=== PATIENT | female | born 1940 | race Caucasian/White ===

== ENCOUNTER 2017-05-21 11:19 | Day surgery (SDC) | payer MEDICARE, OTHER ==
[2017-05-18 15:12] VITALS: BMI 23.6
[~2017-05-21 11:19] MED LIST: LACTATED RINGERS 1,000 ML IV SCH
[2017-05-21 12:43] VITALS: TEMP 96.8
[2017-05-21] MEDS ORDERED: PROPOFOL 10 MG/ML 20 ML VIAL IV ONE (13:12)
--- NOTE | 2017-05-21 13:29 | P.PCN ---
Date of Procedure: 05/21/17 Preoperative Diagnosis: Postoperative Diagnosis: Procedure(s) Performed: BRIEF HISTORY: Patient is a 76-year-old, pleasant, white female, scheduled for an upper endoscopy as part of evaluation of severe dysphagia for the last 2 months duration. She is unable to swallow liquids for the last 2 months and lost about 20 pounds. She is status post a hiatal hernia repair in May 2016 by . PROCEDURE PERFORMED: Esophagogastroduodenoscopy with dilation PREOPERATIVE DIAGNOSIS: Progressive dysphagia to solids 2 months duration. IV sedation per anesthesia. PROCEDURE: After informed consent was obtained, the patient was brought into the endoscopy unit. IV sedation was administered by Anesthesia under continuous monitoring. Initially the Olympus GIF-140 video endoscope was inserted into the mouth. Esophagus intubated without any difficulty. It was gradually advanced into the esophagus. There was a tight stricture identified. Despite the scope could not be advanced to the stricture. At this time I proceeded with balloon dilation using 8-10 mm TTS balloon for total of 90 seconds. Following this I was not able to advance the scope into the stomach. The scope was removed and a pediatric upper endoscopy was then inserted in the mouth and esophagus intubated without any difficulty and with gentle pressure I was able to advance the scope into the stomach and duodenum and carefully examined. The bulb and the second part of the duodenum appeared normal. The scope at this time was withdrawn to the stomach, adequately insufflated with air, and upon careful examination, mucosa of the antrum, body, cardia and the fundus appeared normal. The scope was then withdrawn into the esophagus. Small to moderate size hiatal hernia seen. The GE junction was located at 28 cm from the incisors. Stricture was located at the GE junction and there was recurrence of hiatal hernia noted. There was circumferential ulcerations at the level of the stricture with erosions consistent with severe reflux esophagitis and seen and the patient tolerated the procedure well. IMPRESSION: 1. Tight mid esophageal stricture at the GE junction with superficial erosions and ulcerations status post balloon dilation using 8-10 mm TTS balloon as described above. 2. Moderate size hiatal hernia. RECOMMENDATIONS: The findings of this examination were discussed with the patient as well as her family. She will remain on a clear liquid diet today and advance to soft diet tomorrow. She will start on Prilosec 20 mg twice daily and follow anti-reflux measures. She'll be seen in the office in 6 weeks.. Implants: Indications for Procedure: Operative Findings: Description of Procedure:
[2017-05-21 13:38] VITALS: RESP 18
[2017-05-21 13:55] VITALS: PULSE 57
[2017-05-21 14:51] VITALS: BP 194/88
== END 2017-05-21 14:45 | disposition home or self-care (01) ==
LOC: ORWHC2ENDO 11:19
PROVIDERS: ATTEND Internal Medicine Gastroenterology
DX: K22.2 Esophageal obstruction (principal); K44.9 Diaphragmatic hernia without obstruction or gangrene; I10 Essential (primary) hypertension; E78.5 Hyperlipidemia, unspecified; M19.90 Unspecified osteoarthritis, unspecified site; F39 Unspecified mood [affective] disorder; F40.240 Claustrophobia; K21.9 Gastro-esophageal reflux disease without esophagitis; Z79.899 Other long term (current) drug therapy; Z88.8 Allergy status to other drugs, medicaments and biological substances
CPT/HCPCS: 43249; J2704; C1726

== ENCOUNTER 2017-07-22 09:09 | Day surgery (SDC) | payer MEDICARE, OTHER ==
[2017-07-20 10:03] VITALS: BMI 23.6
[2017-07-22 12:14] VITALS: RESP 16; TEMP 97.8
[2017-07-22] MEDS ORDERED: LIDOCAINE 1% 20 ML VIAL (10MG/ML) FOR IV START INTRADERMA ONE (12:23)
[2017-07-22] MEDS ORDERED: LIDOCAINE 1% INJ 10MG/ML (20 ML MDV) ONE (12:30)
[2017-07-22] MEDS ORDERED: PROPOFOL 10 MG/ML 20 ML VIAL IV ONE (12:30)
--- NOTE | 2017-07-22 12:42 | P.PCN ---
Date of Procedure: 07/22/17 Preoperative Diagnosis: Postoperative Diagnosis: Procedure(s) Performed: BRIEF HISTORY: Patient is a 77-year-old, pleasant, white female, scheduled for an upper endoscopy as a part of evaluation of progressive dysphagia to solids for the last 2 years duration. She underwent an upper endoscopy in April 2017 and was noted to have a tight distal esophageal stricture that was dilated with 10-12 mm balloon. Since then her symptoms have since gradually improved but still has dysphagia to solids. She is hence scheduled for repeat upper endoscopy with dilation today.. PROCEDURE PERFORMED: Esophagogastroduodenoscopy with dilation. PREOPERATIVE DIAGNOSIS: GERD/esophageal stricture. IV sedation per anesthesia. PROCEDURE: After informed consent was obtained, the patient was brought into the endoscopy unit. IV sedation was administered by Anesthesia under continuous monitoring. Initially the Olympus GIF-140 video endoscope was inserted into the mouth. Esophagus intubated without any difficulty. It was gradually advanced into the distal esophagus and there was a tight distal esophageal Strattera identified. Scope could not be advanced into the stomach. At this time balloon dilation was performed using 12-15 mm balloon. It was initially dilated to 12 mm and subsequently to 13.5 mm for total of 1 minute. Following this the balloon was deflated and the scope was advanced into the stomach and duodenum and carefully examined. The bulb and the second part of the duodenum appeared normal. The scope at this time was withdrawn to the stomach, adequately insufflated with air, and upon careful examination, mucosa of the antrum, body, cardia and the fundus appeared normal. The scope was then withdrawn into the esophagus. Small hiatal hernia noted. The GE junction was located at 32 cm from the incisors. At this time more balloon dilation was performed at this time the balloon was dilated to 13.5 mm for 30 seconds and to 40 mm for another 30 seconds. At this time no further dilation was performed as there was some oozing identified. The rest of the esophagus appeared normal. There were no erosions or ulcerations seen and the patient tolerated the procedure well. IMPRESSION: 1. Tight distal esophageal stricture status post balloon dilation using 12- 13.5 and 14 mm TTS balloon as described above. 2. Small hiatal hernia.. RECOMMENDATIONS: The findings of this examination were discussed with the patient as well as a family. She was advised to remain on clear liquid diet today. She will continue with Prilosec 20 mg daily and follow anti-reflex measures. She will be seen in office in 6 weeks. Implants: Indications for Procedure: Operative Findings: Description of Procedure:
[2017-07-22] MEDS ORDERED: hydrALAZINE HCL 20 MG/ML 1 ML VIAL IVP ONE (13:24)
[2017-07-22 13:57] VITALS: BP 192/94; PULSE 73
== END 2017-07-22 14:08 | disposition home or self-care (01) ==
LOC: ORWHC2ENDO 09:09
PROVIDERS: ATTEND Internal Medicine Gastroenterology
DX: K22.2 Esophageal obstruction (principal); K44.9 Diaphragmatic hernia without obstruction or gangrene; K21.9 Gastro-esophageal reflux disease without esophagitis; Z91.09 Other allergy status, other than to drugs and biological substances; I10 Essential (primary) hypertension; E78.5 Hyperlipidemia, unspecified; Z79.899 Other long term (current) drug therapy
CPT/HCPCS: 43249; J0360; J2001; J2704; C1726

== ENCOUNTER 2018-05-05 10:43 | Day surgery (SDC) | payer MEDICARE, OTHER ==
[2018-05-04 09:00] VITALS: BMI 24.5
[2018-05-05 12:24] VITALS: TEMP 97.6
[2018-05-05] MEDS ORDERED: MIDAZOLAM 2 MG/2 ML VIAL IV PRN (12:28)
[2018-05-05] MEDS ORDERED: LIDOCAINE 1% 20 ML VIAL (10MG/ML) FOR IV START INTRADERMA PRN (12:28)
[2018-05-05] MEDS ORDERED: LACTATED RINGERS 1,000 ML IV SCH (12:28)
[2018-05-05] MEDS ORDERED: LIDOCAINE 1% 20 ML VIAL (10MG/ML) FOR IV START INTRADERMA ONE (12:45)
[2018-05-05] MEDS ORDERED: LIDOCAINE 1% INJ 10MG/ML (20 ML MDV) ONE (12:49)
[2018-05-05] MEDS ORDERED: PROPOFOL 10 MG/ML 20 ML VIAL IV ONE (12:49)
--- NOTE | 2018-05-05 13:02 | P.PCN ---
Date of Procedure: 05/05/18 Procedure(s) Performed: BRIEF HISTORY: Patient is a 77-year-old, pleasant, white female, scheduled for an upper endoscopy as a part of evaluation of progressive dysphagia to solids for the last 2 months duration. She did have an upper endoscopy with dilation done for distal esophageal stricture in June 2017. She is maintained on Prilosec 20 mg daily as well as Pepcid at bedtime.. PROCEDURE PERFORMED: Esophagogastroduodenoscopy with dilation. PREOPERATIVE DIAGNOSIS: Progressive dysphagia to solids for 2 months duration. IV sedation per anesthesia. PROCEDURE: After informed consent was obtained, the patient was brought into the endoscopy unit. IV sedation was administered by Anesthesia under continuous monitoring. Initially the Olympus GIF-140 video endoscope was inserted into the mouth. Esophagus intubated without any difficulty. It was gradually advanced into the distal esophagus and at 30 cm from the incisors there was a tight esophageal stricture identified with the superficial erosions or ulcerations in the area. The scope could not be advanced to the stricture. At this time I proceeded with balloon dilation using a 10 mm balloon in a sequential fashion for total of 90 seconds. 5 the dilation with gentle pressure I was able to advance the scope into the stomach and duodenum and carefully examined. The bulb and the second part of the duodenum appeared normal. The scope at this time was withdrawn to the stomach, adequately insufflated with air, and upon careful examination, mucosa of the antrum, body, cardia and the fundus appeared normal. The scope was then withdrawn into the esophagus. Small hiatal hernia noted. The GE junction was located at 32 cm from the incisors. There were superficial erosions or ulcerations seen this proximal to the esophagus stricture consistent with LA grade C reflux esophagitis. The rest of the esophagus appeared normal and the patient tolerated the procedure well. IMPRESSION: 1. Distal esophageal tight stricture status post balloon dilation using 8-10 mm TTS balloon as described above. 2. Linear erosions with ulcerations at the stricture and distal esophagus consistent with LA grade C reflux esophagitis. 3. Small hiatal hernia.. RECOMMENDATIONS: The findings of this examination were discussed with the patient as well as a family. She will remain on a clear liquid diet today. She was advised to increase the Prilosec to 20 mg twice daily to be taken half hour before breakfast and dinnertime and follow antireflux measures. She'll be seen in the office in 3 months.
[2018-05-05] MEDS ORDERED: ONDANSETRON 4 MG/2 ML VIAL IVP ONE (13:28)
[2018-05-05 14:18] VITALS: RESP 18
[2018-05-05] MEDS ORDERED: hydrALAZINE HCL 20 MG/ML 1 ML VIAL IVP STA (14:21)
[2018-05-05 14:50] VITALS: BP 168/84; PULSE 62
== END 2018-05-05 15:16 | disposition home or self-care (01) ==
LOC: ORWHC2ENDO 10:43
PROVIDERS: ATTEND Internal Medicine Gastroenterology
DX: K22.2 Esophageal obstruction (principal); K44.9 Diaphragmatic hernia without obstruction or gangrene; K22.10 Ulcer of esophagus without bleeding; K21.0 Gastro-esophageal reflux disease with esophagitis; I10 Essential (primary) hypertension; E78.5 Hyperlipidemia, unspecified; F32.9 Major depressive disorder, single episode, unspecified; F41.9 Anxiety disorder, unspecified; Z79.899 Other long term (current) drug therapy; Z91.09 Other allergy status, other than to drugs and biological substances
CPT/HCPCS: 43249; J0360; J2405; J2001; J2704; C1726

== ENCOUNTER 2018-06-25 11:10 | Day surgery (SDC) | payer MEDICARE, OTHER ==
[2018-06-22 15:33] VITALS: BMI 23.4
[2018-06-25 11:51] VITALS: RESP 18; TEMP 97.7
[2018-06-25] MEDS ORDERED: LIDOCAINE 1% 20 ML VIAL (10MG/ML) FOR IV START INTRADERMA ONE (11:56)
[2018-06-25] MEDS ORDERED: PROPOFOL 10 MG/ML 20 ML VIAL IV ONE (12:48)
--- NOTE | 2018-06-25 13:01 | P.PCN ---
Date of Procedure: 06/25/18 Procedure(s) Performed: BRIEF HISTORY: Patient is a 78-year-old, pleasant, white female, scheduled for an upper endoscopy as a part of evaluation of progressive dysphagia to solids for the last few months duration. Last upper endoscopy with dilation was in June 2070 and was noted to have a distal esophageal stricture.. PROCEDURE PERFORMED: Esophagogastroduodenoscopy With dilation and biopsy PREOPERATIVE DIAGNOSIS: Progressive dysphagia to solids/history of esophageal stricture IV sedation per anesthesia. PROCEDURE: After informed consent was obtained, the patient was brought into the endoscopy unit. IV sedation was administered by Anesthesia under continuous monitoring. Initially the Olympus GIF-140 video endoscope was inserted into the mouth. Esophagus intubated without any difficulty. It was gradually advanced into the distal esophagus was a tight stricture was identified. The scope could not be advanced to the stricture. At this time I proceeded with balloon dilation using 10-12 mm TTS balloon. The stricture was dilated to 10 mm for 30 seconds and following which I was able to advance the scope into the stomach and duodenum and carefully examined. The bulb and the second part of the duodenum appeared normal. The scope at this time was withdrawn to the stomach, adequately insufflated with air, and upon careful examination, mucosa of the antrum, body, cardia and the fundus appeared normal. The scope was then withdrawn into the esophagus. The GE junction was located at 30 cm from the incisors. Once again there was a tight suture noted at the GE junction and at this time I proceeded with balloon dilation with 10 mm, 11 mm and 12 mm sequential fashion for total of 90 seconds. Following this I did biopsies at the site of the Stricture. The rest of the esophagus appeared normal. There were no erosions or ulcerations seen and the patient tolerated the procedure well. IMPRESSION: 1. Distal esophageal tight stricture status post balloon dilation with 10-12 mm TTS balloon as described above. 2. Size hiatal hernia. RECOMMENDATIONS: The findings of this examination were discussed with the patient as well as her family. She was advised to remain on clear liquid diet for today. She will be seen in the office in 6 weeks. She was given her perception for Prilosec 20 mg daily.
[2018-06-25 13:49] VITALS: BP 211/75; PULSE 62
== END 2018-06-25 14:16 | disposition home or self-care (01) ==
LOC: ORWHC2ENDO 11:10
PROVIDERS: ATTEND Internal Medicine Gastroenterology
DX: K22.2 Esophageal obstruction (principal); K21.0 Gastro-esophageal reflux disease with esophagitis; K44.9 Diaphragmatic hernia without obstruction or gangrene; I10 Essential (primary) hypertension; E78.5 Hyperlipidemia, unspecified; Z85.3 Personal history of malignant neoplasm of breast; Z88.1 Allergy status to other antibiotic agents; Z88.8 Allergy status to other drugs, medicaments and biological substances; Z79.899 Other long term (current) drug therapy
CPT/HCPCS: 88305; 88312; 43249; 43239; J2704

== ENCOUNTER → 2020-10-15 | Outpatient (CLI) | payer MEDICARE, OTHER ==
[2020-10-15 14:01] VITALS: BP 176/99; PULSE 74; RESP 20; TEMP 98.1
--- NOTE | 2020-10-15 14:30 | P.PAINCN ---
History of Present Illness - Reason for Consult Consult date: 10/15/20 - History of Present Illness This is a 80 years old female with a chronic history of severe low back pain with radiation to the right lower extremity associated with numbness and tingling sensation, symptoms started 2 years ago , he denies any initiating event, the patient was treated at that time with physical therapy, and her symptoms improved completely, within one year ago she started having the same symptoms, she had lumbar epidural steroid injections 1 , which provided her with significant relief of her pain, currently most of the pain in the low back area with radiation to the right lower extremity she denies any motor or sensory deficit she denies any fever or night sweats and there is no change in bowel movement or urination. Past Medical History Past Medical History: Cancer, Eye Disorder, GERD/Reflux, Hypertension, Osteoarthritis (OA) Additional Past Medical History / Comment(s): difficulty swallowing,current tx of uti,hx breast cancer-2000 radiation 30txs, macular degeneration left eye, RECURRENT HIATAL HERNIA History of Any Multi-Drug Resistant Organisms: None Reported Past Surgical History: Breast Surgery, Heart Catheterization, Hysterectomy, Joint Replacement, Orthopedic Surgery Additional Past Surgical History / Comment(s): EGD w/ dilatation x3, right breast lumpectomy, right mastectomy, left knee arthroscopic , left total knee replacement , left breast biopsy. right ovary and tube removed, left ovary and tube removed, kyree cataract surgery, hiatal hernia repair Past Anesthesia/Blood Transfusion Reactions: Family History of Problems w/ Anesthesia, Motion Sickness Additional Past Anesthesia/Blood Transfusion Reaction / Comm: slight claustrophobia,brother has agitation with anesthesia Smoking Status: Never smoker - Past Family History Mother Family Medical History: Diabetes Mellitus Additional Family Medical History / Comment(s): from complictions of dm at age 56 Father Family Medical History: CVA/TIA Additional Family Medical History / Comment(s): Father at age 78 and was found approximate 3 days after thought to be related to CVA or myocardial infarction. Sister(s) Family Medical History: Cancer Additional Family Medical History / Comment(s): Bone. Brother(s) Family Medical History: Hypertension Additional Family Medical History / Comment(s): Patient has had 3 brothers with myocardial infarctions, one with a blood clot. Medications and Allergies Home Medications Medication Instructions Recorded Confirmed Type ALPRAZolam 0.5 mg PO HS 07/28/14 10/15/20 History Famotidine [Pepcid] 20 mg PO HS 07/28/14 10/15/20 History Irbesartan [Avapro] 150 mg PO QAM 07/28/14 10/15/20 History Loratadine [Claritin] 10 mg PO DAILY 07/28/14 10/15/20 History amLODIPine [Norvasc] 2.5 mg PO HS 06/23/16 10/15/20 History Atorvastatin [Lipitor] 10 mg PO DAILY 10/15/20 10/15/20 History Citalopram Hydrobromide 10 mg PO DAILY 10/15/20 10/15/20 History [Citalopram HBr] Diclofenac 0.1% Ophth Soln 1 drops BOTH EYES QID 10/15/20 10/15/20 History [Voltaren 0.1% Ophth Soln] Donepezil [Aricept] 10 mg PO HS 10/15/20 10/15/20 History Levothyroxine Sodium [Synthroid] 75 mcg PO DAILY 10/15/20 10/15/20 History Omeprazole 20 mg PO DAILY 10/15/20 10/15/20 History Allergies Allergy/AdvReac Type Severity Reaction Status Date / Time hydrocodone bitartrate Allergy Intermediate Nausea & Verified 06/25/18 11:53 [From Lonepine] Vomiting adhesive Allergy Rash/Hives Verified 06/25/18 11:53 albuterol sulfate Allergy Dyspnea Verified 06/25/18 11:53 [From Proventil HFA] doxycycline Allergy Nausea & Verified 06/25/18 11:53 Vomiting mold Allergy Nausea Verified 06/25/18 11:53 nalbuphine HCl [From Nubain] Allergy Nausea & Verified 06/25/18 11:53 Vomiting ofloxacin [From Floxin] Allergy Nausea & Verified 06/25/18 11:53 Vomiting oxytetracycline Allergy Nausea & Verified 06/25/18 11:53 [From Terramycin] Vomiting oxytetracycline HCl Allergy Nausea & Verified 06/25/18 11:53 [From Terramycin] Vomiting Sulfa (Sulfonamide Allergy Nausea & Verified 06/25/18 11:53 Antibiotics) Vomiting sulfamethoxazole Allergy Nausea & Verified 06/25/18 11:53 [From Septra] Vomiting terfenadine [From Seldane] Allergy Nausea Verified 06/25/18 11:53 trimethoprim [From Septra] Allergy Nausea & Verified 06/25/18 11:53 Vomiting Physical Exam Vitals: Vital Signs Temp Pulse Resp BP Pulse Ox 10/15/20 13:52 98.1 F 74 20 176/99 96 Intake and Output 10/14/20 10/15/20 10/15/20 22:59 06:59 14:59 Other: Weight 60.328 kg Physical Examinations : -Constitutiona : Cooperative , not in acute distress . -HEENT : nech : supple , no Lymphadenopathy , normal thyroid size . : eyes : no ptosis , no icterus, no photophobia . - neurologic : Cranial nerve II to XII intact , no focal neurological deffecit . -psychatric : alert , oriented X 3 , appropriate affect , intact judgment and insight . -Lymphatic : no Lymphadenopathy . - musculoskeltal : Lumber spine moter stegnth lower extremities ,thigh and legs 4-5/5 Right side , 5/5 Left side deep tendon reflexes : normal Knee Jerk , normal ankle Jerk lumber facet Loading Test =positive Right , positive Left Range of motion of the lumbar spine Flexion 30 degrees, extension 10 degrees strait leg raising test = positive at 30 degree on the right side Fabere test= positive Right , and positive LT . tenderness over the Sacroiliac joint on the Right , and Left sides Results Comments: MRI of the lumbar spine= extensive multilevel lumbar bulging disc disease and spinal canal stenosis, and facet joint hypertrophy and bilateral foraminal stenosis Assessment and Plan Plan: Assessment and plan=1-lumbar radiculopathy. 2-lumbar spinal stenosis. 3-lumbar bulging disc disease. 4-lumbar spondylosis with lumbar facet arthropathy without myelopathy 5-bilateral sacroiliitis. 6-compression fracture L2 lumbar spine. Patient could benefit from lumbar epidural steroid injection at L4-L5 or L5-S1 (right paramedian approach ) In the future if she continues to have low back pain she could benefit from lumbar medial branch block and possible RFA Time with Patient: Greater than 30 PQRS Measure Charge Sheet Measure #130: Documentation of Current Meds in Medical Chart: Patient's medications documented in chart Measure #226: Tobacco Use: Screen & Cessation Intervention: Pt not a tobacco user Measure #111: Pneumonia Vaccination: Pneumococcal vaccine administered or previously received Measure #47: Advance Care Plan: Advance care planning discussed & documented, pt chose/unable to give Measure #412: Opioid Treatment Agreement: No documentation of signed opioid treatment agreement Measure #408: Opioid Therapy Follow-up Evaluation: Patient had NO f/u eval minimum every 3 months during opioid therapy Measure #317: Preventitive Care & Scrn High Bld Press & F/U: Pre-hypertensive or hypertensive BP documented, pt will f/u with PCP Measure #128: Body Mass Index (BMI) Screening & Follow-up: BMI documented within normal parameters Measure #131: Pain Assessment & Follow-up: Pain positive & plan documented, Follow-up scheduled Measure #431: Unhealthy Alcohol Use Preventative Care & Scrn: Patient not identified as an unhealthy alcohol user PQRS Narrative: Smoking Status Never smoker Blood Pressure 176/99 Pain Intensity [Lower Back] 8 Scale Used Numeric (1 - 10) Hx Alcohol Use (MH) No Home Medications: Ambulatory Orders ALPRAZolam 0.5 mg PO HS 07/28/14 Famotidine [Pepcid] 20 mg PO HS 07/28/14 Irbesartan [Avapro] 150 mg PO QAM 07/28/14 Loratadine [Claritin] 10 mg PO DAILY 07/28/14 amLODIPine [Norvasc] 2.5 mg PO HS 06/23/16 Atorvastatin [Lipitor] 10 mg PO DAILY 10/15/20 Citalopram Hydrobromide [Citalopram HBr] 10 mg PO DAILY 10/15/20 Diclofenac 0.1% Ophth Soln [Voltaren 0.1% Ophth Soln] 1 drops BOTH EYES QID 10/15/20 Donepezil [Aricept] 10 mg PO HS 10/15/20 Levothyroxine Sodium [Synthroid] 75 mcg PO DAILY 10/15/20 Omeprazole 20 mg PO DAILY 10/15/20
== END | disposition home or self-care (01) ==
LOC: PNWHC3 13:33
PROVIDERS: ATTEND Specialist
DX: M48.061 Spinal stenosis, lumbar region without neurogenic claudication (principal); M46.1 Sacroiliitis, not elsewhere classified; M47.26 Other spondylosis with radiculopathy, lumbar region; S32.029A Unspecified fracture of second lumbar vertebra, initial encounter for closed fracture; Z79.891 Long term (current) use of opiate analgesic; Z79.899 Other long term (current) drug therapy; Z79.890 Hormone replacement therapy
CPT/HCPCS: 99211

== ENCOUNTER 2020-10-30 11:04 | Day surgery (SDC) | payer MEDICARE, OTHER ==
[2020-10-26 17:49] VITALS: BMI 24.5
[2020-10-30 11:47] VITALS: RESP 16; TEMP 98.5
[2020-10-30] MEDS ORDERED: fentaNYL (PF) 50 MCG/ML 2 ML AMP ONE (12:14)
[2020-10-30] MEDS ORDERED: IOPAMIDOL M200 10 ML VIAL ONE (12:14)
[2020-10-30] MEDS ORDERED: TRIAMCINOLONE ACETONIDE 40 MG/ML 1 ML VIAL ONE (12:14)
[2020-10-30] MEDS ORDERED: ROPIVACAINE 5MG/ML 20ML VIAL ONE (12:14)
--- NOTE | 2020-10-30 12:36 | P.PCN ---
Date of Procedure: 10/30/20 Surgeon: Michael Rincon Pathology: none sent Condition: stable Disposition: PACU Description of Procedure: PREOPERATIVE DIAGNOSIS: Lumber Degenerative Disc Diseases. POSTOPERATIVE DIAGNOSIS: Lumbar Degenerative Disc Diseases PROCEDURE 1. Lumbar epidural steroid injection under fluoroscopic guidance at the L4-5 level in the right paramedian approach. 2. Lumbar epidurogram. ANESTHESIA: Local with 1% lidocaine; and IV moderate conscious sedation with Versed and fentanyl EBL: Minimal PROCEDURE INDICATION: The patient with low back pain and radiculitis symptoms unresponsive to conservative treatment. Fluoroscopy was used to optimize visualization of the needle placement and to maximize safety. PROCEDURE DESCRIPTION / TECHNIQUE: The patient was seen and identified in the preoperative area. Risks, benefits, complications including but not limited to infections ,bleeding ,allergic reaction to the medications ,nerve damage and not complete pain relief , and alternatives were discussed with the patient. The patient agreed to proceed with the procedure and signed the consent. IV was started, and vital signs were stable. Patient was taken to the OR and time out was completed. The patient was placed in the prone position on procedure table and a pillow was placed under the abdomen to reduce lumbar lordosis. The lumbosacral area was prepped and draped in the usual sterile fashion with ChloraPrep.Patient was closely monitored during the procedure. Conscious sedation was used during the procedure to decrease patients anxiety. Vital signs were monitered during the entire procedure. Using anterior-posterior fluoroscopy, the L4-5 interlaminar space was identified and the skin over this site was marked and then infiltrated with 1% lidocaine subcutaneously. Subsequently, a 20-gauge Tuohy epidural needle was inserted and advanced toward the epidural space using the Loss of resistance to air technique and guided by AP and lateral fluoroscopy. The correct needle position in the epidural space was verified with the injection of 1 mL of the water soluble contrast dye Omnipaque 180 contrast and observing an excellent epidurogram with the epidural spread of the dye, after negative aspiration for blood and CSF and in the absence of paresthesias. Again after negative aspiration, a 6 ml mixture containing 40 mg of Kenalog and 5 ml of preservative free Normal Saline, and 1 ml of preservative free ropivacaine 0.5% solution was injected and a washout of epidurogram was seen. Needle was withdrawn intact, skin was cleansed, and bandages were applied. patient tolerated procedure well and was transferred to PACU in stable condition.A copy of the needle placement picture was saved to the fluoroscopy machine. COMPLICATIONS: None DISPOSITION / PLANS: The patient was placed in a supine position and transferred to the recovery area in a stable condition for observation. There was no evidence of lower extremity motor or sensory deficit after the procedure. Pat ient was discharged from the recovery room after meeting discharge criteria. Home discharge instructions were given to the patient by the staff. The patient was reexamined prior to discharge. The patient will schedule a follow up in the clinic in 2-4 weeks.
[2020-10-30] MEDS ORDERED: ONDANSETRON 4 MG/2 ML VIAL ONE (12:43)
[2020-10-30] MEDS ORDERED: ONDANSETRON 4 MG/2 ML VIAL IVP ONE (12:45)
--- NOTE | 2020-10-30 12:59 | FL ---
Fluoroscopy INDICATION: Pain FINDINGS: Fluoroscopy time: 6 seconds. Images obtained: 2. IMPRESSIONS: 1. Documentation of fluoroscopy.
[2020-10-30 13:22] VITALS: BP 130/78; PULSE 78
[2020-10-30 13:41] LABS: Glucose,Whole Blood 111 mg/dL (75-99)
[2020-10-30] MEDS ORDERED: IV FLUID CONTINUATION 1,000 ML IV ONE (14:09)
== END 2020-10-30 14:10 | disposition home or self-care (01) ==
LOC: ORPAIN 11:04
PROVIDERS: ATTEND Anesthesiology
DX: M51.16 Intervertebral disc disorders with radiculopathy, lumbar region (principal); I10 Essential (primary) hypertension; Z88.8 Allergy status to other drugs, medicaments and biological substances
CPT/HCPCS: 62323; J3301; J2405; J3010; Q9966; J2795; 99152

== ENCOUNTER → 2020-11-28 | Outpatient (CLI) | payer MEDICARE, OTHER ==
[2020-11-28 11:03] VITALS: BP 170/78; PULSE 72; RESP 18; TEMP 97.5
--- NOTE | 2020-11-28 11:10 | P.PN ---
Subjective Progress Note Date: 11/28/20 This is an 80-year-old lady with history of chronic lower back pain with radiation to the left lower extremity down to the left foot. 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 She did receive lumbar epidural steroid injection in the interlaminar approach at t he L4-L5 level which resulted in 6070% of pain relief as the patient states today. Patient denies new-onset weakness, bowel/bladder incontinence, or any other s igns or symptoms of cauda equina syndrome. There are no signs of acute intoxication, and no indications of medication diversion or overuse. In addition to above, 13-point review of systems is also negative for chest pain, shortness of breath, changes in vision, changes in hearing, new onset weakness, abdominal pain, diarrhea, extreme fatigue, malaise, fever, skin changes, homicidal or suicidal ideation, or bowel or bladder incontinence. Vital Signs: Reviewed in EMR Gen: AAOx3, NAD HEENT: PERRLA,hearing grossly normal Pulm: resp unlabored Neck: supple, trachea midline Neuro exam of the lower extremities: Normal muscle strength bilaterally and symmetrically Straight leg raising test: Monty's test: Range of motion of the lumbar spine: Facet loading test: Tenderness in the paravertebral musculature: Significant tenderness in the lumbar paravertebral musculature bilaterally. Neuro: CN II-XII grossly intact, Imaging: Reviewed in EMR/chart Assessment: Lumbar stenosis Lumbar DDD L2 old vertebral compression fracture Plan: 1. Explanation: Opioid and psychological risk scores were reviewed. Diagnoses, prognoses, and multiple treatment options including but not limited to physical therapy, interventional therapies, adjuvant medical therapies, narcotic medication therapies, and surgery were discussed with the patient and all questions were answered to the patient's satisfaction. 2. Opioid agreement: Signed with the patient and the patient is warned not to use opioids while driving or before driving and not to combine opioids with benzodiazepines or alcohol. 3. Counseling: The patient was counseled extensively on SMOKING CESSATION, BODY MASS INDEX, EXERCISE. Specifically, the patient was instructed regarding the importance of smoking cessation, obesity, and exercise in the context of both chronic pain and overall health. 4. Procedures: We need to repeat lumbar epidural steroid injection when her pain gets worse 5. Consultations: None 6. Investigations: None 7. Medications: None 8. Disposition: Return to clinic as needed 9. Maps were reviewed and were appropriate. Objective - Vital Signs Vital signs: Vital Signs Temp 97.5 F L 11/28/20 11:00 Pulse 72 11/28/20 11:00 Resp 18 11/28/20 11:00 BP 170/78 11/28/20 11:00 Pulse Ox 99 11/28/20 11:00
== END | disposition home or self-care (01) ==
LOC: PNWHC3 10:47
PROVIDERS: ATTEND Anesthesiology
DX: M48.061 Spinal stenosis, lumbar region without neurogenic claudication (principal); M51.36 Other intervertebral disc degeneration, lumbar region; S32.029A Unspecified fracture of second lumbar vertebra, initial encounter for closed fracture
CPT/HCPCS: 99211